=== PATIENT | male | born 1970 | race Caucasian/White ===

== ENCOUNTER 2021-03-15 13:58 | Emergency (ER) | payer OTHER ==
[2021-03-15 14:52] LABS: BILIRUBIN NEGATIVE (NEGATIVE); BLOOD TRACE-INTACT Ery/uL (NEGATIVE); CLARITY CLEAR (CLEAR); COLOR YELLOW (YELLOW); GLUCOSE (U) NORMAL (NORMAL); LEUKOCYTES NEGATIVE Leu/uL (NEGATIVE); NITRITE NEGATIVE (NEGATIVE); PROTEIN NEGATIVE (NEGATIVE); SPECIFIC GRAVITY >=1.030 (1.001-1.030); UROBILINOGEN 0.2 mg/dL (0.2-1.0)
[2021-03-15 15:14] LABS: SQUAMOUS EPITHELIAL CELLS RARE; URINARY WBC RARE
[2021-03-15 17:48] LABS: BASOPHIL 0.6 % (0-2); EOSINOPHIL 2.8 % (0-5); HCT 49.2 % (42.0-52.0); HGB 16.7 g/dl (13.2-18.0); LYMPHOCYTE 27.5 % (15-48); MCH 30.3 pg (25.0-31.0); MCHC 33.9 g/dL (32.0-36.0); MCV 89.1 fL (78.0-100.0); MONOCYTE 7.1 % (0-12); MPV 9.8 fL (6.0-9.5); NEUTROPHIL 61.5 % (41-80); NRBC 0; PLT 318 K/uL (150-400); RBC 5.52 M/uL (4.70-6.00); RDW 13.7 % (11.5-14.0)
[2021-03-15 18:17] LABS: BUN/CREAT RATIO (CALC) 13.6 RATIO; CREATININE 1.32 mg/dL (0.67-1.17); POTASSIUM 4.3 mmol/L (3.5-5.1)
[2021-03-15] MEDS ORDERED: MEDROL 4MG DOSEP4 MG PO (19:35)
[2021-03-15] MEDS ORDERED: CYCLOBENZAPRINE10 MG PO (19:35)
[2021-05-11] MEDS ORDERED: MELOXICAM15 MG PO (14:51)
[2021-05-11] MEDS ORDERED: PHENTERMINE H37.5 MG PO (14:52)
[2021-05-11] MEDS ORDERED: POTASSIUM99 M1 PO (14:53)
[2021-05-11] MEDS ORDERED: MAG-OXIDE 400M400 MG PO (14:53)
[2021-05-11] MEDS ORDERED: PEPCID AC20 MG PO (14:54)
== END 2021-03-15 20:13 | disposition home or self-care (01) ==
LOC: FER 13:58
PROVIDERS: Emergency Medicine; Nurse Practitioner Family
DX: S39.012A Strain of muscle, fascia and tendon of lower back, initial encounter (principal); Z85.47 Personal history of malignant neoplasm of testis; Z88.0 Allergy status to penicillin; Z87.19 Personal history of other diseases of the digestive system; X58.XXXA Exposure to other specified factors, initial encounter
CPT/HCPCS: 36415; 72110; 80048; 81001; 85025; J1100; J1885; J2405

== ENCOUNTER 2021-05-15 09:18 | Day surgery (SDC) | payer OTHER ==
[~2021-05-15] VITALS: Ht 188 cm; Wt 131.1 kg
[~2021-05-15 09:18] MED LIST: CYCLOBENZAPRINE10 MG PO; MAG-OXIDE 400M400 MG PO; MEDROL 4MG DOSEP4 MG PO; MELOXICAM15 MG PO; PEPCID AC20 MG PO; PHENTERMINE H37.5 MG PO; POTASSIUM99 M1 PO
--- NOTE | 2021-05-15 15:02 | NUR ---
PT. HAD A RIGHT TOTAL KNEE REPLACEMENT THIS DATE. HE WILL D/C HOME WITH SPOUSE. PT. HAS A ROLLING WALKER. PT. REQUESTD OUTPT. THERAPY AT [facility] IN [place]. FIRST APPT. IS 05/17/2021 @ 1:00 P.M.
[2021-05-16 05:35] LABS: BASOPHIL 0.5 % (0-2); EOSINOPHIL 3.5 % (0-5); HCT 40.9 % (42.0-52.0); HGB 13.5 g/dl (13.2-18.0); LYMPHOCYTE 23.1 % (15-48); MCH 29.6 pg (25.0-31.0); MCV 89.7 fL (78.0-100.0); MONOCYTE 8.3 % (0-12); MPV 9.1 fL (6.0-9.5); NEUTROPHIL 64.2 % (41-80); NRBC 0; PLT 239 K/uL (150-400); RBC 4.56 M/uL (4.70-6.00); RDW 13.4 % (11.5-14.0); WBC 10.1 K/uL (4.0-10.5)
[2021-05-16 05:56] LABS: BUN/CREAT RATIO (CALC) 19.4 RATIO; CREATININE 1.08 mg/dL (0.67-1.17); POTASSIUM 4.4 mmol/L (3.5-5.1)
[2021-05-16] MEDS ORDERED: OXYCODONE-ACET1 EAC1 PO (08:56)
[2021-05-16] MEDS ORDERED: FEOSOL325 MG PO (08:56)
[2021-05-16] MEDS ORDERED: XARELTO10 MG PO (08:56)
[2021-05-16] MEDS ORDERED: ZOFRAN4 M1 PO (08:56)
== END 2021-05-16 12:00 | disposition home or self-care (01) ==
LOC: FAS 09:18
PROVIDERS: Legal Medicine
DX: M17.11 Unilateral primary osteoarthritis, right knee (principal); M87.051 Idiopathic aseptic necrosis of right femur; G89.18 Other acute postprocedural pain; K21.9 Gastro-esophageal reflux disease without esophagitis; G47.33 Obstructive sleep apnea (adult) (pediatric); I10 Essential (primary) hypertension; M71.21 Synovial cyst of popliteal space [Baker], right knee; Z88.0 Allergy status to penicillin; Z79.899 Other long term (current) drug therapy
CPT/HCPCS: 36415; 73560; 80048; 85025; 86850; 86900; 86901; 94010; 97110; 97162; 97165; 97530-GP; 97535; C1713; C1776; J0171; J1170; J1885; J2250; J2270; J2405; J2704; J2795; J3010; J7120